=== PATIENT | female | born 1940 | race Caucasian/White ===

== ENCOUNTER 2017-01-14 05:30 | Day surgery (SDC) | payer MEDICARE, OTHER ==
--- NOTE | ~2017-01-14 | EGD ---
EGD REPORT [facility] [address] [id number] NAME: IRVING ORTIZ : [birth year] STATUS : [facility] PAT#: [id number] AGE: 76 ADM/REG DATE : 01/14/17 MR#: [id number] REPORT SERV DATE: 01/20/17 DICTATED BY: DATE: REPORT STATUS : Draft [facility]ANS[facility]IBED BY: [facility] DATE: 01/20/17 [facility] Patient Name: Irving Ortiz Date of : 1940 Attending MD: DONAVON ALMONTE MD Procedure Date No Time: 01/14/2017 Procedure: Small bowel enteroscopy Indications: Abnormal abdominal CT, Suspected jejunitis, Abdominal pain Referring MD: Ramandeep Garcia Medicines: Monitored Anesthesia Care Complications: No immediate complications. Procedure: Pre-Anesthesia Assessment: - ASA Grade Assessment: III - A patient with severe systemic disease. After obtaining informed consent, the endoscope was passed under direct vision. Throughout the procedure, the patient's blood pressure, pulse, and oxygen saturations were monitored continuously. The PCF H190L [id number] was introduced through the mouth and advanced to the small bowel distal to the Ligament of Treitz. The small bowel enteroscopy was accomplished without difficulty. The patient tolerated the procedure well. Findings: There was no evidence of significant pathology in the small bowel distal to the ligament of Treitz. Biopsies were taken with a cold forceps for histology. Impression: - The examined portion of the jejunum was normal. Biopsied. Recommendation: - Discharge patient to home. - Soft diet. - Continue present medications. - Await pathology results. - Avoid antiinflammatory medicines. Plan MRI enterography in 3 month. Procedure Code(s): --- Professional --- 29037, Small intestinal endoscopy, enteroscopy beyond second portion of duodenum, not including ileum; with biopsy, single or multiple Diagnosis Code(s): --- Professional --- EGD REPORT [facility] [address] [id number] NAME: IRVING ORTIZ : [birth year] STATUS : [facility]#: [id number] AGE: 76 ADM/REG DATE : 01/14/17 MR#: [id number] REPORT SERV DATE: 01/20/17 DICTATED BY: DATE: REPORT STATUS : Draft TRANSCRIBED BY: [facility] [facility] DATE: 01/20/17 R93.3, Abnormal findings on diagnostic imaging of other parts of digestive tract R10.9, Unspecified abdominal pain CPT copyright 2013 [employer]. All rights reserved. The codes documented in this report are preliminary and upon subject scientific research review may be revised to meet current compliance requirements. DONAVON ALMONTE MD 01/14/2017 7:35 AM This report has been signed electronically. Number of Addenda: 0 Note Initiated On: 01/14/2017 6:59 AM Scope Withdrawal Time 0 hours 0 minutes 0 seconds [address] [facility] [place] [id number]
--- NOTE | ~2017-01-14 | EGD ---
EGD REPORT [facility] [address] [id number] NAME: IRVING ORTIZ : [birth year] STATUS : [facility] PAT#: [id number] AGE: 76 ADM/REG DATE : 01/14/17 MR#: [id number] REPORT SERV DATE: 01/14/17 DICTATED BY: DATE: REPORT STATUS : Draft [facility]: [facility] DATE: 01/14/17 Endoscopy Center Patient Name: Irving Ortiz Date of : 1940 Attending MD: DONAVON ALMONTE MD Procedure Date No Time: 01/14/2017 Procedure: Small bowel enteroscopy Indications: Abnormal abdominal CT, Suspected jejunitis, Abdominal pain Referring MD: Ramandeep Garcia Medicines: Monitored Anesthesia Care Complications: No immediate complications. Procedure: Pre-Anesthesia Assessment: - ASA Grade Assessment: III - A patient with severe systemic disease. After obtaining informed consent, the endoscope was passed under direct vision. Throughout the procedure, the patient's blood pressure, pulse, and oxygen saturations were monitored continuously. The PCF H190L [id number] was introduced through the mouth and advanced to the small bowel distal to the Ligament of Treitz. The small bowel enteroscopy was accomplished without difficulty. The patient tolerated the procedure well. Findings: There was no evidence of significant pathology in the small bowel distal to the ligament of Treitz. Biopsies were taken with a cold forceps for histology. Impression: - The examined portion of the jejunum was normal. Biopsied. Recommendation: - Discharge patient to home. - Soft diet. - Continue present medications. - Await pathology results. - Avoid antiinflammatory medicines. Plan MRI enterography in 3 month. Procedure Code(s): --- Professional --- 76003, Small intestinal endoscopy, enteroscopy beyond second portion of duodenum, not including ileum; with biopsy, single or multiple Diagnosis Code(s): --- Professional --- EGD REPORT [facility] [address] [id number] NAME: IRVING ORTIZ : [birth year] STATUS : [facility] PAT#: [id number] AGE: 76 ADM/REG DATE : 01/14/17 MR#: [id number] REPORT SERV DATE: 01/14/17 DICTATED BY: DATE: REPORT STATUS : Draft TRANSCRIBED BY: [employer] [facility] DATE: 01/14/17 R93.3, Abnormal findings on diagnostic imaging of other parts of digestive tract R10.9, Unspecified abdominal pain CPT copyright 2013 [employer]. All rights reserved. The codes documented in this report are preliminary and upon chro review may be revised to meet current compliance requirements. DONAVON ALMONTE MD 01/14/2017 7:35 AM This report has been signed electronically. Number of Addenda: 0 Note Initiated On: 01/14/2017 6:59 AM Scope Withdrawal Time 0 hours 0 minutes 0 seconds [id number] [facility] [place] [id number]
[~2017-01-14 05:30] MED LIST: ACET500CAP PO; ASAB PO; COZ25 PO; HYDROCHLOROT25 MG PO; LEVOTHYROXIN175 MCG PO; METPAKSF PO; MIRALAX POWDER1 PKT PO; RED YEAS1 PO; VITAMIN B-121000 MC1 PO; ZETIA PO
== END 2017-01-14 23:59 | disposition home or self-care (01) ==
LOC: DMU 05:30
PROVIDERS: Internal Medicine Gastroenterology
PROC: 0DBA8ZX Excision of Jejunum, Via Natural or Artificial Opening Endoscopic, Diagnostic (ICD-10-PCS; principal; 2017-01-14 07:30)
DX: R10.9 Unspecified abdominal pain (principal); R93.3 Abnormal findings on diagnostic imaging of other parts of digestive tract; I10 Essential (primary) hypertension; E78.00 Pure hypercholesterolemia, unspecified; M19.90 Unspecified osteoarthritis, unspecified site; E03.9 Hypothyroidism, unspecified; Z88.6 Allergy status to analgesic agent; Z90.89 Acquired absence of other organs; Z98.42 Cataract extraction status, left eye; Z96.1 Presence of intraocular lens; Z98.41 Cataract extraction status, right eye; Z90.49 Acquired absence of other specified parts of digestive tract; Z98.890 Other specified postprocedural states
CPT/HCPCS: 88305; A9270-GY